=== PATIENT | male | born 1990 | race Caucasian/White ===

== ENCOUNTER 2022-09-24 20:47 | Emergency (ER) | payer OTHER ==
[~2022-09-24] VITALS: Ht 172.7 cm; Wt 136.1 kg
[2022-09-24] MEDS ORDERED: AMOCLA875 PO (22:56)
[2022-09-24] MEDS ORDERED: ONDA4 PO (22:56)
== END 2022-09-24 23:15 | disposition home or self-care (01) ==
LOC: ER 20:47
DX: K08.89 Other specified disorders of teeth and supporting structures (principal); F17.290 Nicotine dependence, other tobacco product, uncomplicated
CPT/HCPCS: A9270